=== PATIENT | female | born 1980 | race Two or more races ===

== ENCOUNTER 2022-07-11 15:38 | Inpatient (IN) | payer MEDICARE, MEDICAID ==
[~2022-07-11] VITALS: Ht 177.8 cm; Wt 55.8 kg
[2022-07-11 17:33] LABS: Hematocrit 24.3 % (36.0-46.0); Monocytes # (auto) 0.5 10 ^3/uL (0-1.3)
[2022-07-11 17:35] LABS: Basophils # (auto) 0.1 10 ^3/uL (0-0.2); Basophils % (auto) 0.7 % (0.0-2.0); Eosinophils # (auto) 0.1 10 ^3/uL (0-0.8); Eosinophils % (auto) 1.5 % (0.0-7.0); Lymphocytes # (auto) 1.8 10 ^3/uL (0.4-5.4); Lymphocytes % (auto) 20.3 % (10.0-50.0); Mean Corpuscular Hemoglobin 16.6 pg (28.0-32.0); Mean Corpuscular Hgb Conc. 28.1 g/dL (32.0-36.0); Mean Corpuscular Volume 59.2 fL (80.0-100.0); Monocytes % (auto) 5.9 % (0.0-12.0); Neutrophils # (auto) 6.4 10 ^3/uL (1.6-8.6); Neutrophils % (auto) 71.6 % (37.0-80.0); Red Blood Cells 4.11 10^6/uL (4.0-5.20); White Blood Cell 8.9 10^3/uL (4.4-10.8)
[2022-07-11 17:36] LABS: Red Cell Distribution Width 20.8 % (11.8-14.3)
[2022-07-11 17:49] LABS: Hemoglobin 6.8 g/dL (12.2-16.2)
[2022-07-11 18:17] LABS: Albumin 3.3 g/dL (3.4-5.0); BUN/Creatinine Ratio 22.4 (10.0-20.0); Calcium 8.9 mg/dL (8.5-10.1); Potassium 3.9 mmol/L (3.5-5.1)
[2022-07-11 18:20] LABS: Bilirubin, Total 0.3 mg/dL (0.2-1.0); Total Protein 8.1 g/dL (6.4-8.2)
[2022-07-11] MEDS ORDERED: IOHEXOL 300 MG/ML 100ML BOTTLE IJ ONE (19:23)
[2022-07-11] MEDS ORDERED: levoFLOXacin 750MG 150 ML IV ONE (19:30)
[2022-07-11] MEDS ORDERED: VANCOMYCIN 1GM/250ML 250 ML IV ONE (19:30)
[2022-07-11] MEDS ORDERED: VANCOMYCIN PER PHARMACY 0 MG IV SCH (20:45)
[2022-07-11] MEDS ORDERED: TEMAZEPAM 15 MG CAP PO PRN (20:45)
[2022-07-11] MEDS ORDERED: ONDANSETRON HCL 4 MG/2 ML VIAL IV PRN (20:45)
[2022-07-11] MEDS ORDERED: diphenhdrAMINE HCL 25 MG CAP PO ONE (21:00)
[2022-07-11] MEDS ORDERED: diphenhdrAMINE HCL 50 MG/1 ML VL ONE (21:20)
[2022-07-11 21:33] LABS: % Iron Saturation 2.5 % (15-50)
[2022-07-11] MEDS ORDERED: PIPERACILLIN-TAZOB 3.375GM 100 ML IV SCH (22:00)
[2022-07-11] MEDS ORDERED: diphenhdrAMINE HCL 50 MG/1 ML VL IM ONE ×2 (22:45→23:30)
[2022-07-12] VITALS (7 sets, daily range): BP systolic 101–154; BP diastolic 46–71
[2022-07-12] MEDS: HYDROcodone-ACET 5/325MG TAB PO PRN (00:52)
[2022-07-12] MEDS ORDERED: VANCOMYCIN 1GM/250ML 250 ML IV ONE ×2 (04:00→20:00)
[2022-07-12 05:55] LABS: Basophils # (auto) 0.1 10 ^3/uL (0-0.2); Basophils % (auto) 0.8 % (0.0-2.0); Eosinophils # (auto) 0.2 10 ^3/uL (0-0.8); Monocytes # (auto) 0.4 10 ^3/uL (0-1.3); Neutrophils # (auto) 4.2 10 ^3/uL (1.6-8.6)
[2022-07-12 05:58] LABS: Eosinophils % (auto) 2.8 % (0.0-7.0); Lymphocytes # (auto) 1.7 10 ^3/uL (0.4-5.4); Lymphocytes % (auto) 26.4 % (10.0-50.0); Mean Corpuscular Hemoglobin 16.5 pg (28.0-32.0); Mean Corpuscular Hgb Conc. 27.7 g/dL (32.0-36.0); Mean Corpuscular Volume 59.7 fL (80.0-100.0); Monocytes % (auto) 5.7 % (0.0-12.0); Neutrophils % (auto) 64.3 % (37.0-80.0); Nucleated Red Blood Cells % 0.1 %; Red Blood Cells 4.02 10^6/uL (4.0-5.20); White Blood Cell 6.5 10^3/uL (4.4-10.8)
[2022-07-12 06:03] LABS: Potassium 3.5 mmol/L (3.5-5.1); Red Cell Distribution Width 21.3 % (11.8-14.3)
[2022-07-12 06:06] LABS: Hemoglobin 6.6 g/dL (12.2-16.2)
[2022-07-12 06:10] LABS: Albumin 2.8 g/dL (3.4-5.0); BUN/Creatinine Ratio 21.1 (10.0-20.0); Bilirubin, Total 0.3 mg/dL (0.2-1.0); Calcium 8.5 mg/dL (8.5-10.1); Total Protein 7.2 g/dL (6.4-8.2)
[2022-07-12] MEDS: PANTOPRAZOLE 40 MG TAB PO SCH (10:00)
[2022-07-12] MEDS ORDERED: VANCOMYCIN 1GM/250ML 250 ML IV SCH ×3 (18:00→20:00)
[2022-07-12] MEDS ORDERED: DAKINS QUARTER STR 0.125% (NaHypochlorite) 473 ML TOPICAL SOL TOP SCH (22:00)
[2022-07-12] MEDS: levoFLOXacin 500MG 100 ML IV SCH (22:00)
[2022-07-12] MEDS: DAKINS QUARTER STR 0.125% (NaHypochlorite) 473 ML TOPICAL SOL TOP SCH (22:00)
[2022-07-13 05:00] VITALS: BP 100/59
[2022-07-13 08:18] LABS: Eosinophils # (auto) 0.2 10 ^3/uL (0-0.8); Monocytes # (auto) 0.4 10 ^3/uL (0-1.3); Neutrophils # (auto) 3.5 10 ^3/uL (1.6-8.6); Nucleated Red Blood Cells % 0.1 %
[2022-07-13 08:20] LABS: Basophils # (auto) 0 10 ^3/uL (0-0.2); Basophils % (auto) 0.6 % (0.0-2.0); Eosinophils % (auto) 3.8 % (0.0-7.0); Hematocrit 25.3 % (36.0-46.0); Lymphocytes # (auto) 1.8 10 ^3/uL (0.4-5.4); Lymphocytes % (auto) 30.3 % (10.0-50.0); Mean Corpuscular Volume 59.5 fL (80.0-100.0); Monocytes % (auto) 6.8 % (0.0-12.0); Neutrophils % (auto) 58.5 % (37.0-80.0); Red Blood Cells 4.25 10^6/uL (4.0-5.20); White Blood Cell 5.9 10^3/uL (4.4-10.8)
[2022-07-13 08:39] LABS: Hemoglobin 6.8 g/dL (12.2-16.2)
[2022-07-13 08:43] VITALS: BP 119/68
[2022-07-13 08:46] LABS: Albumin 3.1 g/dL (3.4-5.0); Calcium 8.6 mg/dL (8.5-10.1); Potassium 4.7 mmol/L (3.5-5.1)
[2022-07-13 08:50] LABS: BUN/Creatinine Ratio 35.6 (10.0-20.0); Bilirubin, Total 0.2 mg/dL (0.2-1.0)
[2022-07-13] MEDS: FERROUS SULFATE 325mg EC TAB PO SCH (10:02)
[2022-07-13] MEDS: PANTOPRAZOLE 40 MG TAB PO SCH (10:03)
[2022-07-13] MEDS: VANCOMYCIN 1GM/250ML 250 ML IV SCH ×2 (11:00→23:08)
[2022-07-13 11:36] LABS: Urine Bacteria FEW /hpf (None Seen); Urine Blood Negative /uL (Negative); Urine Specific Gravity 1.018 (1.001-1.035); Urine WBC 1 /hpf (0 - 5)
[2022-07-13 13:00] VITALS: BP 110/66
[2022-07-13] MEDS: DAKINS QUARTER STR 0.125% (NaHypochlorite) 473 ML TOPICAL SOL TOP SCH ×2 (15:00→22:00)
[2022-07-13 16:41] VITALS: BP 113/56
[2022-07-13] MEDS: levoFLOXacin 500MG 100 ML IV SCH (20:00)
[2022-07-13 22:00] VITALS: BP 99/56
[2022-07-14] VITALS (7 sets, daily range): BP systolic 103–119; BP diastolic 57–73
[2022-07-14] MEDS: FERROUS SULFATE 325mg EC TAB PO SCH (11:54)
[2022-07-14] MEDS: PANTOPRAZOLE 40 MG TAB PO SCH (11:54)
[2022-07-14] MEDS: DAKINS QUARTER STR 0.125% (NaHypochlorite) 473 ML TOPICAL SOL TOP SCH ×2 (12:24→23:01)
[2022-07-14] MEDS: VANCOMYCIN 1GM/250ML 250 ML IV SCH (16:04)
[2022-07-14] MEDS: levoFLOXacin 500MG 100 ML IV SCH (20:00)
[2022-07-15] MEDS: VANCOMYCIN 1GM/250ML 250 ML IV SCH ×4 (00:18→23:53)
[2022-07-15 05:00] VITALS: BP 100/69
[2022-07-15 05:45] LABS: Basophils # (auto) 0.1 10 ^3/uL (0-0.2); Eosinophils # (auto) 0.3 10 ^3/uL (0-0.8); Hematocrit 25.8 % (36.0-46.0); Mean Corpuscular Hemoglobin 16.4 pg (28.0-32.0); Mean Corpuscular Hgb Conc. 27.7 g/dL (32.0-36.0); Neutrophils # (auto) 4.3 10 ^3/uL (1.6-8.6)
[2022-07-15 05:47] LABS: Basophils % (auto) 1.2 % (0.0-2.0); Eosinophils % (auto) 4.4 % (0.0-7.0); Hemoglobin 7.1 g/dL (12.2-16.2); Lymphocytes # (auto) 2.2 10 ^3/uL (0.4-5.4); Lymphocytes % (auto) 29.5 % (10.0-50.0); Mean Corpuscular Volume 59.3 fL (80.0-100.0); Monocytes # (auto) 0.5 10 ^3/uL (0-1.3); Monocytes % (auto) 6.5 % (0.0-12.0); Neutrophils % (auto) 58.4 % (37.0-80.0); Nucleated Red Blood Cells % 0.1 %; Red Blood Cells 4.34 10^6/uL (4.0-5.20); White Blood Cell 7.3 10^3/uL (4.4-10.8)
[2022-07-15 06:16] LABS: Red Cell Distribution Width 21.1 % (11.8-14.3)
[2022-07-15 08:15] VITALS: BP 102/65
[2022-07-15 09:00] VITALS: BP 102/65
[2022-07-15] MEDS: PANTOPRAZOLE 40 MG TAB PO SCH (09:13)
[2022-07-15] MEDS: FERROUS SULFATE 325mg EC TAB PO SCH (09:13)
[2022-07-15 13:00] VITALS: BP 131/68
[2022-07-15 17:00] VITALS: BP 115/65
[2022-07-15] MEDS: DAKINS QUARTER STR 0.125% (NaHypochlorite) 473 ML TOPICAL SOL TOP SCH ×2 (17:04→22:10)
[2022-07-15] MEDS: Ensure HIGH Protein Chocolate 8oz Bottle PO SCH (18:33)
[2022-07-15 22:00] VITALS: BP 114/62
[2022-07-16 05:00] VITALS: BP 101/56
[2022-07-16 07:30] VITALS: BP 131/47
[2022-07-16] MEDS: Ensure HIGH Protein Chocolate 8oz Bottle PO SCH ×3 (08:03→18:37)
[2022-07-16] MEDS: VANCOMYCIN 1GM/250ML 250 ML IV SCH ×2 (08:52→16:54)
[2022-07-16] MEDS: FERROUS SULFATE 325mg EC TAB PO SCH (08:52)
[2022-07-16] MEDS: PANTOPRAZOLE 40 MG TAB PO SCH (08:52)
[2022-07-16 09:00] VITALS: BP 131/47
[2022-07-16] MEDS: DAKINS QUARTER STR 0.125% (NaHypochlorite) 473 ML TOPICAL SOL TOP SCH ×2 (10:00→21:46)
[2022-07-16 13:00] VITALS: BP 113/70
[2022-07-16 17:00] VITALS: BP 119/61
[2022-07-16 22:00] VITALS: BP 113/63
[2022-07-17] MEDS: VANCOMYCIN 1GM/250ML 250 ML IV SCH ×3 (00:06→15:23)
[2022-07-17 05:00] VITALS: BP 109/51
[2022-07-17] MEDS: Ensure HIGH Protein Chocolate 8oz Bottle PO SCH ×3 (08:00→18:00)
[2022-07-17 08:55] VITALS: BP 115/61
[2022-07-17] MEDS: FERROUS SULFATE 325mg EC TAB PO SCH (09:48)
[2022-07-17] MEDS: PANTOPRAZOLE 40 MG TAB PO SCH (09:48)
[2022-07-17] MEDS: DAKINS QUARTER STR 0.125% (NaHypochlorite) 473 ML TOPICAL SOL TOP SCH ×2 (09:57→21:56)
[2022-07-17] MEDS: NICOTINE 14 MG/24HR TOPICAL PATCH TD ONE ×2 (12:00→15:23)
[2022-07-17 12:29] VITALS: BP 112/57
[2022-07-17 14:49] LABS: Cholesterol 97 mg/dL (< 200); HDL Cholesterol 41 mg/dL (40-59); LDL Cholesterol 54 mg/dL (< 100); Triglycerides 102 mg/dL (< 150)
[2022-07-17 17:00] VITALS: BP 105/63
[2022-07-17 22:00] VITALS: BP 108/61
[2022-07-17] MEDS: ATORVASTATIN 20 MG TAB PO SCH (22:00)
[2022-07-18] MEDS: VANCOMYCIN 1GM/250ML 250 ML IV SCH ×3 (00:36→17:38)
[2022-07-18 05:00] VITALS: BP 98/51
[2022-07-18] MEDS: Ensure HIGH Protein Chocolate 8oz Bottle PO SCH ×3 (08:00→18:00)
[2022-07-18 08:30] LABS: INR 0.97 (0.9-1.15); Partial Thromboplastin Time 25.3 sec (24.6-33.4)
[2022-07-18 09:00] VITALS: BP 110/55
[2022-07-18 09:02] LABS: Basophils # (auto) 0.1 10 ^3/uL (0-0.2); Eosinophils # (auto) 0.4 10 ^3/uL (0-0.8); Lymphocytes # (auto) 1.7 10 ^3/uL (0.4-5.4); Nucleated Red Blood Cells % 0.1 %
[2022-07-18 09:04] LABS: Basophils % (auto) 0.8 % (0.0-2.0); Eosinophils % (auto) 4.9 % (0.0-7.0); Hematocrit 25.9 % (36.0-46.0); Hemoglobin 7.2 g/dL (12.2-16.2); Lymphocytes % (auto) 20.2 % (10.0-50.0); Mean Corpuscular Hemoglobin 16.6 pg (28.0-32.0); Mean Corpuscular Volume 59.2 fL (80.0-100.0); Monocytes # (auto) 0.6 10 ^3/uL (0-1.3); Monocytes % (auto) 6.7 % (0.0-12.0); Neutrophils # (auto) 5.7 10 ^3/uL (1.6-8.6); Neutrophils % (auto) 67.4 % (37.0-80.0); Red Blood Cells 4.37 10^6/uL (4.0-5.20); White Blood Cell 8.5 10^3/uL (4.4-10.8)
[2022-07-18 09:05] LABS: Red Cell Distribution Width 21.6 % (11.8-14.3)
[2022-07-18] MEDS: PANTOPRAZOLE 40 MG TAB PO SCH (09:26)
[2022-07-18] MEDS: FERROUS SULFATE 325mg EC TAB PO SCH (09:26)
[2022-07-18] MEDS: DAKINS QUARTER STR 0.125% (NaHypochlorite) 473 ML TOPICAL SOL TOP SCH ×2 (10:00→22:29)
[2022-07-18] MEDS: NICOTINE 14 MG/24HR TOPICAL PATCH TD SCH (10:00)
[2022-07-18] MEDS ORDERED: IOHEXOL 350 MG/ML 100ML IJ ONE (12:10)
[2022-07-18 13:00] VITALS: BP 116/68
[2022-07-18 16:17] LABS: Amphetamine Screen, Urine POSITIVE (NEGATIVE); Barbiturate Scree,Urine NEGATIVE (NEGATIVE); Benzodiazephine Screen, Urine NEGATIVE (NEGATIVE); Cannabinoid Screen, Urine NEGATIVE (NEGATIVE); Cocaine Screen, Urine NEGATIVE (NEGATIVE); Opiate Scree,Urine NEGATIVE (NEGATIVE); Phencyclidine Screen, Urine NEGATIVE (NEGATIVE)
[2022-07-18 16:43] VITALS: BP 122/60
[2022-07-18 22:00] VITALS: BP 117/56
[2022-07-18] MEDS: ATORVASTATIN 20 MG TAB PO SCH (22:22)
[2022-07-18] MEDS: HYDROcodone-ACET 5/325MG TAB PO PRN (22:23)
[2022-07-19] VITALS (7 sets, daily range): BP systolic 105–123; BP diastolic 50–57
[2022-07-19] MEDS: VANCOMYCIN 1GM/250ML 250 ML IV SCH ×3 (02:08→16:15)
[2022-07-19] MEDS: HYDROcodone-ACET 5/325MG TAB PO PRN ×3 (04:54→22:09)
[2022-07-19 05:44] LABS: Basophils # (auto) 0.1 10 ^3/uL (0-0.2); Eosinophils # (auto) 0.3 10 ^3/uL (0-0.8); Lymphocytes # (auto) 1.2 10 ^3/uL (0.4-5.4)
[2022-07-19 05:47] LABS: Eosinophils % (auto) 3.7 % (0.0-7.0); Hematocrit 23.9 % (36.0-46.0); Lymphocytes % (auto) 13.4 % (10.0-50.0); Mean Corpuscular Hemoglobin 16.9 pg (28.0-32.0); Mean Corpuscular Hgb Conc. 28.3 g/dL (32.0-36.0); Mean Corpuscular Volume 59.5 fL (80.0-100.0); Monocytes # (auto) 0.5 10 ^3/uL (0-1.3); Monocytes % (auto) 5.5 % (0.0-12.0); Neutrophils # (auto) 6.9 10 ^3/uL (1.6-8.6); Neutrophils % (auto) 76.4 % (37.0-80.0); Red Blood Cells 4.02 10^6/uL (4.0-5.20); White Blood Cell 9.1 10^3/uL (4.4-10.8)
[2022-07-19 06:01] LABS: BUN/Creatinine Ratio 51.1 (10.0-20.0); Calcium 8.7 mg/dL (8.5-10.1); INR 0.97 (0.9-1.15); Partial Thromboplastin Time 25.1 sec (24.6-33.4); Potassium 4.2 mmol/L (3.5-5.1)
[2022-07-19 06:04] LABS: Hemoglobin 6.8 g/dL (12.2-16.2)
[2022-07-19] MEDS: Ensure HIGH Protein Chocolate 8oz Bottle PO SCH ×3 (08:00→19:02)
[2022-07-19] MEDS: PANTOPRAZOLE 40 MG TAB PO SCH (09:42)
[2022-07-19] MEDS: FERROUS SULFATE 325mg EC TAB PO SCH (09:42)
[2022-07-19] MEDS: NICOTINE 14 MG/24HR TOPICAL PATCH TD SCH (09:42)
[2022-07-19] MEDS: ACETAMINOPHEN 325 MG TAB PO PRN (10:06)
[2022-07-19] MEDS: DAKINS QUARTER STR 0.125% (NaHypochlorite) 473 ML TOPICAL SOL TOP SCH ×2 (10:07→22:00)
[2022-07-19] MEDS: ATORVASTATIN 20 MG TAB PO SCH (22:00)
[2022-07-20] MEDS: VANCOMYCIN 1GM/250ML 250 ML IV SCH ×3 (00:10→16:53)
[2022-07-20] MEDS: ACETAMINOPHEN 325 MG TAB PO PRN (04:04)
[2022-07-20 05:00] VITALS: BP 101/51
[2022-07-20] MEDS: Ensure HIGH Protein Chocolate 8oz Bottle PO SCH ×3 (08:00→18:55)
[2022-07-20 08:05] VITALS: BP 102/66
[2022-07-20 09:00] VITALS: BP 102/66
[2022-07-20] MEDS: DAKINS QUARTER STR 0.125% (NaHypochlorite) 473 ML TOPICAL SOL TOP SCH ×2 (09:50→22:42)
[2022-07-20 09:57] LABS: Basophils # (auto) 0.1 10 ^3/uL (0-0.2); Eosinophils # (auto) 0.1 10 ^3/uL (0-0.8); Hematocrit 24.1 % (36.0-46.0); Lymphocytes # (auto) 1.2 10 ^3/uL (0.4-5.4); Mean Corpuscular Hemoglobin 16.6 pg (28.0-32.0); Nucleated Red Blood Cells % 0.1 %
[2022-07-20 10:00] LABS: Basophils % (auto) 1.1 % (0.0-2.0); Eosinophils % (auto) 0.9 % (0.0-7.0); Lymphocytes % (auto) 18.8 % (10.0-50.0); Mean Corpuscular Hgb Conc. 27.9 g/dL (32.0-36.0); Mean Corpuscular Volume 59.4 fL (80.0-100.0); Monocytes # (auto) 0.7 10 ^3/uL (0-1.3); Monocytes % (auto) 10.2 % (0.0-12.0); Neutrophils # (auto) 4.5 10 ^3/uL (1.6-8.6); Red Blood Cells 4.06 10^6/uL (4.0-5.20); White Blood Cell 6.5 10^3/uL (4.4-10.8)
[2022-07-20] MEDS ORDERED: LACTULOSE 20Gm/30ML SOLN PO ONE (10:00)
[2022-07-20 10:05] LABS: Hemoglobin 6.7 g/dL (12.2-16.2)
[2022-07-20 10:35] LABS: BUN/Creatinine Ratio 32.7 (10.0-20.0); Potassium 4.7 mmol/L (3.5-5.1)
[2022-07-20] MEDS: NICOTINE 14 MG/24HR TOPICAL PATCH TD SCH (11:17)
[2022-07-20] MEDS: PANTOPRAZOLE 40 MG TAB PO SCH (12:54)
[2022-07-20 13:00] VITALS: BP 135/63
[2022-07-20 17:00] VITALS: BP_SYST 124; BP_SYST 126; BP_DIAS 67; BP_DIAS 87
[2022-07-20] MEDS: FERROUS SULFATE 325mg EC TAB PO SCH (18:03)
[2022-07-20 22:00] VITALS: BP 119/65
[2022-07-20] MEDS: ATORVASTATIN 20 MG TAB PO SCH (22:00)
[2022-07-21] MEDS: VANCOMYCIN 1GM/250ML 250 ML IV SCH ×3 (00:25→09:11)
[2022-07-21 05:00] VITALS: BP 96/57
[2022-07-21] MEDS: FERROUS SULFATE 325mg EC TAB PO SCH (08:00)
[2022-07-21] MEDS: ASCORBIC ACID 1,000 MG TAB PO SCH ×2 (08:00→08:21)
[2022-07-21] MEDS: ZINC SULFATE 220mg CAP or TAB PO SCH ×2 (08:00→08:21)
[2022-07-21] MEDS: Ensure HIGH Protein Chocolate 8oz Bottle PO SCH (08:00)
[2022-07-21] MEDS: PANTOPRAZOLE 40 MG TAB PO SCH ×2 (08:01→08:21)
[2022-07-21] MEDS: CHOLECALCIFEROL (VITD3) 2,000 UNIT CAP/TAB PO SCH ×2 (08:01→08:21)
[2022-07-21] MEDS: NICOTINE 14 MG/24HR TOPICAL PATCH TD SCH (08:19)
[2022-07-21 08:30] VITALS: BP 117/62
[2022-07-21 09:00] VITALS: BP 117/30
[2022-07-21] MEDS: DAKINS QUARTER STR 0.125% (NaHypochlorite) 473 ML TOPICAL SOL TOP SCH (10:00)
== END 2022-07-21 11:20 | disposition left against medical advice (07) | DRG 539 ==
LOC: ER 15:38 → OVERFLOW 20:48 → EAST 07-12 00:02
PROVIDERS: ADMIT Nurse Practitioner; ATTEND Family Medicine
PROC: 05H933Z Insertion of Infusion Device into Right Brachial Vein, Percutaneous Approach (ICD-10-PCS; principal; 2022-07-16)
PROC: B54MZZA Ultrasonography of Right Upper Extremity Veins, Guidance (ICD-10-PCS; 2022-07-16)
DX: M86.8X7 Other osteomyelitis, ankle and foot (principal); U07.1 COVID-19; L02.611 Cutaneous abscess of right foot; L03.115 Cellulitis of right lower limb; D50.9 Iron deficiency anemia, unspecified; D75.839 Thrombocytosis, unspecified; K59.00 Constipation, unspecified; F17.210 Nicotine dependence, cigarettes, uncomplicated; F15.90 Other stimulant use, unspecified, uncomplicated; Z53.29 Procedure and treatment not carried out because of patient's decision for other reasons; Z20.822 Contact with and (suspected) exposure to COVID-19; Z88.1 Allergy status to other antibiotic agents; Z59.00 Homelessness unspecified; Z82.49 Family history of ischemic heart disease and other diseases of the circulatory system; Z88.0 Allergy status to penicillin; S91.301A Unspecified open wound, right foot, initial encounter; X58.XXXA Exposure to other specified factors, initial encounter; Y93.89 Activity, other specified; Y92.89 Other specified places as the place of occurrence of the external cause; Y99.8 Other external cause status
CPT/HCPCS: 36415; 71045; 73630; 73701; 74176; 75635; 76937; 80048; 80053; 80061; 80202; 80307; 81001; 82270; 82565; 83036; 83540; 83550; 84443; 84702; 85025; 85610; 85730; 86850; 86900; 86901; 86920; 87040; 87205; 87426; 93925; 96365; 96368; 96372; 97163; G0378; J1956

== ENCOUNTER 2024-02-10 20:26 | Emergency (ER) | payer MEDICARE, OTHER ==
[~2024-02-10] VITALS: Ht 177.8 cm; Wt 43.1 kg
--- NOTE | 2024-02-10 22:28 | DVH ---
Exam: CT CT AB PEL WO CON-NO ORAL OR IV History: abscess Comparison Study: CT CT AB PEL WO CON-NO ORAL OR IV on DOS: 07/19/22 Technique: Multidetector spiral CT of the abdomen was performed from lung bases to pubic symphysis. Imaging was performed without IV contrast. Axial, coronal and sagittal multiplanar reformats were ob tained from the axial data set by the technologist. Radiation Dose : 1. Abdomen/Pelvis: CTDIvol 5.1 mGy, DLP 269.85 mGy*cm. Findings: Evaluation of solid organs is limited due to lack of intravenous contrast use. Lung Bases: No acute or significant lung base finding. Normal heart size. No pleural or pericardial effusion. Liver: The liver is normal in size. No focal lesions. Gallbladder and Biliary Tree: Unremarkable Spleen: Unremarkable Pancreas: The pancreas is grossly normal in appearance. Adrenal Glands: Unremarkable Kidneys: Kidneys are grossly normal without calculi or hydronephrosis. Bladder: Grossly unremarkable for degree of distention. Bowel: The stomach is grossly normal in appearance. Small bowel and colon are normal in caliber and d istribution. The appendix is not visualized; however, no secondary findings of acute appendicitis id entified. Ascites: Absent Lymphadenopathy: No mesenteric, retroperitoneal or periportal lymphadenopathy. Abdominal Wall and Mesentery: Focal fat stranding/phlegmon is seen in the superficial sacral region w hich may reflect cellulitis. Underlying abscess is not excluded (evaluation is limited in the absenc e of IV contrast). Vasculature: The visualized abdominal aorta is normal in size and caliber. Evaluation of abdominal a nd pelvic vessels is limited due to lack of intravenous contrast. Pelvic Organs: Unremarkable Musculoskeletal: No aggressive focal bony lesions, acute fractures or dislocation. IMPRESSION: 1. Focal fat stranding/phlegmon is seen in the superficial sacral region which may reflect cellulitis . Underlying abscess is not excluded (evaluation is limited in the absence of IV contrast). Radiation optimization: All CT scans at this facility use at least one of these dose optimization chaitanya hniques: automated exposure control mA and/or kV adjustment per patient size (includes targeted exam s where dose is matched to clinical indication) or iterative reconstruction.
[2024-02-10] MEDS ORDERED: CLIN1CAP70 PO (23:07)
--- NOTE | 2024-02-10 23:07 | ED.PDOC ---
Musculoskeletal HPI Comments 43-year-old female complaining of pain to her buttock region. Patient states she had a fall three days ago. Falling on her buttock. States in the next day she noticed redness and swelling and started having drainage from an abscess. Patient states fall happened 1st and then the abscess. Patient reports pain with sitting and trying to the bathroom. Fever no chills. Patient does report occasional methamphetamine use. Chief Complaint: Fall Injury Time Seen by MD: 21:02 Reviewed Notes: Nurses Notes Allergies: Coded Allergies: Levofloxacin (Verified Allergy, Intermediate, 07/14/22) Celecoxib (Verified Allergy, Unknown, 02/10/24) Coconut Flavor (Verified Allergy, Unknown, 02/10/24) Latex (Verified Allergy, Unknown, 02/10/24) Penicillins (Verified Allergy, Unknown, 07/11/22) Home Meds No Active Prescriptions or Reported Meds Information Source: Patient Mode of Arrival: Ambulatory Past Medical History PAST MEDICAL HISTORY: Denies Surgical History: Denies all surgeries CLINICAL SUPPORT NURSE History: Denies all CLINICAL SUPPORT NURSE Hx Family History Family History: Reviewed,noncontributory to illness Social History Smoker: Non-Smoker Alcohol: Denies ETOH Use Drugs: Denies Drug Use Lives In: Home Constitutional: denies: chills, diaphoresis, fatigue, fever, malaise, sweats, weakness, others EENTM: denies: blurred vision, double vision, ear bleeding, ear discharge, ear drainage, ear pain, ear ringing, eye pain, eye redness, hearing loss, mouth pain, mouth swelling, nasal discharge, nose bleeding, nose congestion, nose pain, photophobia, tearing, throat pain, throat swelling, voice changes, others Respiratory: denies: cough, hemoptysis, orthopnea, SOB at rest, shortness of breath, SOB with excertion, stridor, wheezing, others Cardiovascular: denies: chest pain, dizzy spells, diaphoresis, Dyspnea on exertion, edema, irregular heart beat, left arm pain, lightheadedness, palpitations, PND, syncope, others Gastrointestinal: denies: abdomen distended, abdominal pain, blood streaked bowels, constipated, diarrhea, dysphagia, difficulty swallowing, hematemesis, melena, nausea, poor appetite, poor fluid intake, rectal bleeding, rectal pain, vomiting, others Genitourinary: denies: abnormal vagina bleeding, burning, dyspareunia, dysuria, flank pain, frequency, hematuria, incontinence, pain, , vagina discharge, urgency, others Neurological: denies: dizziness, fainting, headache, left sided numbness, left sided weakness, numbness, paresthesia, pre-existing deficit, right sided numbness, right sided weakness, seizure, speech problems, tingling, tremors, weakness, others Musculoskeletal: denies: back pain, gout, joint pain, joint swelling, muscle pain, muscle stiffness, neck pain, others Integumetry: reports: wounds (Buttock); denies: bruises, change in color, change in hair/nails, dryness, laceration, lesions, lumps, rash, others Allergic/Immunocompromised: denies: Difficulty Healing, Frequent Infections, Hives, Itching, others Hematologic/Lymphatic: denies: anemia, blood clots, easy bleeding, easy bruising, swollen glands, others Physical Exam General Appearance: No Apparent Distress, Normal HEENT: Normal ENT Inspection, Pharynx Normal, TMs Normal Neck: Full Range of Motion, Non-Tender, Normal, Normal Inspection Respiratory: Chest Non-Tender, Lungs Clear, No Accessory Muscle Use, No Respiratory Distress, Normal Breath Sounds Cardiovascular: No Edema, No JVD, No Murmur, No Gallop, Normal Peripheral Pulses, Regular Rate/Rhythm Breast Exam: Deferred Gastrointestinal: No Organomegaly, Non Tender, No Pulsatile Mass, Normal Bowel Sounds, Soft Genitalia: Deferred Pelvic: Deferred Rectal: Deferred Extremities: No calf tenderness, Normal capillary refill, Normal inspection, Normal range of motion, Non-tender, No pedal edema Musculoskeletal : Apperance: Normal Neurologic: Alert, customer support analyst II-XII nml as Tested, No Motor Deficits, Normal Affect, Normal Mood, No Sensory Deficits Cerebellar Function: Normal Reflexes: Normal Skin: Dry, Normal Color, Warm, Wounds (Launch abscess noted to the buttock region. Purulent drainage.) Lymphatic: No Adenopathy Was a procedure done? Was a procedure done?: No Differential Diagnosis EXT Differential Diagnosis: Cellulitis, Fracture, Bursitis X-Ray, Labs, Meds, VS Vital Signs Date Time Temp Pulse Resp B/P (MAP) Pulse Ox O2 Delivery O2 Flow Rate FiO2 02/10/24 20:41 99.3 117 20 128/58 (81) 100 X-Ray, Labs, Meds, VS Comment Imaging: X-rays and CT scans were reviewed and interpreted by this provider, imaging shows no fractures and no pathological disease. Pending radiology review. Laboratory: Labs reviewed and interpreted by this provider. No significant abnormalities noted. Patient has prior medical visits reviewed. Med reconciliation performed Vital signs reviewed Time of 1ST Reevaluation: 23:07 Reevaluation 1ST: Improved Patient Education/Counseling: Diagnosis, Treatment, Need For Follow Up (Patient advised to follow-up in the emergency room in the next 24 to 48 hours if symptoms do not improve. Advised follow-up with PCP in the next 3 to 5 days. Patient verbalized understanding. ) Family Education/Counseling: Diagnosis Departure 1 Departure Time of Disposition: 23:06 Impression: Primary Impression: Pilonidal abscess of cleft Disposition: HOME / SELF CARE / HOMELESS Condition: Fair e-Prescriptions Clindamycin Hcl (Clindamycin Hcl) 300 Mg Cap 300 MG PO QID for 10 Days, #40 CAP Prov: MOLLY JAY 02/10/24 Discharged With: Self Critical Care Note Critical Care Time?: No Stability Stability form required: No Heart Score Heart Score: Heart Score Response (Comments) Value History N/A 0 EKG N/A 0 Age N/A 0 Risk Factors N/A 0 Troponin N/A 0 Total 0 MOLLY JAY Feb 10, 2024 23:07
[2024-02-11 01:37] VITALS: BP 117/72; PULSE 102; RESP 17; TEMP 98.7; O2SAT 100
== END 2024-02-11 02:03 | disposition home or self-care (01) ==
LOC: ER 20:26
DX: L05.01 Pilonidal cyst with abscess (principal); Z88.0 Allergy status to penicillin; Z88.8 Allergy status to other drugs, medicaments and biological substances
CPT/HCPCS: 74176